=== PATIENT | female | born 1935 | race Caucasian/White ===

== ENCOUNTER 2021-09-22 09:57 | Outpatient (CLI) | payer MEDICARE, BC ==
[~2021-09-22 09:57] MED LIST: Iopamidol 300 61% 100 ML VIAL FS ONE
== END 2021-09-22 09:58 | disposition home or self-care (01) ==
LOC: CSHCT 09:57
PROVIDERS: ATTEND Internal Medicine Cardiovascular Disease
DX: I70.209 Unspecified atherosclerosis of native arteries of extremities, unspecified extremity (principal); I70.0 Atherosclerosis of aorta; I70.8 Atherosclerosis of other arteries; I70.203 Unspecified atherosclerosis of native arteries of extremities, bilateral legs; M79.89 Other specified soft tissue disorders; J90 Pleural effusion, not elsewhere classified; J98.11 Atelectasis; I51.7 Cardiomegaly; K76.0 Fatty (change of) liver, not elsewhere classified; K76.9 Liver disease, unspecified; D17.1 Benign lipomatous neoplasm of skin and subcutaneous tissue of trunk
CPT/HCPCS: 75635; 82565

== ENCOUNTER 2021-10-22 19:09 | Emergency (ER) | payer MEDICARE, BC ==
[2021-10-22 21:04] LABS: SARS-CoV-2 NAA Rapid Test Not Detected (NotDetected)
== END 2021-10-22 22:02 | disposition home or self-care (01) ==
LOC: CSHERS 19:09
DX: M79.10 Myalgia, unspecified site (principal); I48.91 Unspecified atrial fibrillation; I45.10 Unspecified right bundle-branch block; I11.0 Hypertensive heart disease with heart failure; I50.9 Heart failure, unspecified; E78.5 Hyperlipidemia, unspecified; E78.00 Pure hypercholesterolemia, unspecified; M19.90 Unspecified osteoarthritis, unspecified site; Z20.822 Contact with and (suspected) exposure to COVID-19; Z87.891 Personal history of nicotine dependence; E03.9 Hypothyroidism, unspecified
CPT/HCPCS: 0240U; 71045; 80053; 80061; 84443; 93005; 99284; 36415

== ENCOUNTER 2022-02-15 20:55 | Emergency (ER) | payer MEDICARE, BC ==
[2022-02-15 21:30] LABS: %Lymphocytes 24.1 % (18.0-47.0); %Monocytes 14.7 % (0.0-10.0); %Neutrophils 57.8 % (40.0-75.0); Hemoglobin 9.1 g/dL (12.0-15.5); Mean Corpuscular HGB CONC 32.6 g/dL (32.0-36.0); Mean Corpuscular Hemoglobin 33.8 pg (27.0-33.0); Mean Corpuscular Volume 103.7 fl (81.6-98.3); Mean Platelet Volume 11.5 fl (7.4-10.4); Platelet Count 147 10x3/uL (150-450); RBC Distribution Width 14.4 % (11.5-14.5); Red Blood Cell (RBC) Count 2.69 10x6/uL (3.90-5.03); White Blood Cell (WBC) Count 4.6 10x3/uL (3.5-10.5)
[2022-02-15 21:31] LABS: #Eosinphils 0.1 10x3/uL (0.0-0.5); #Monocytes 0.7 10x3/uL (0.0-1.1); #Neutrophils 2.7 10x3/uL (1.5-8.4); %Basophils 0.4 % (0.0-2.0); %Eosinophils 2.8 % (0.0-6.0)
[2022-02-15 21:35] LABS: ALT (SGPT) 26 U/L (8-55); AST (SGOT) 27 U/L (5-34); Albumin 3.6 g/dL (3.4-4.8); Alkaline Phosphatase 324 U/L (40-110); Anion Gap 11 mmol/L (10-20); BUN (Urea Nitrogen) 32 mg/dL (9.8-20.1); Bilirubin, Total 0.7 mg/dL (0.2-1.2); Calc. Creatinine Clearance 0 mL/min (70-130); Calcium 8.9 mg/dL (7.8-10.44); Carbon Dioxide 34 mmol/L (23-31); Chloride 99 mmol/L (98-107); Estimated GFR 41; Globulin 2.9 g/dL (2.4-3.5); Glucose 110 mg/dL (83-110); Potassium 4.4 mmol/L (3.5-5.1); Protein, Total 6.5 g/dL (5.8-8.1); Sodium 140 mmol/L (136-145)
[2022-02-15 23:29] LABS: Troponin I 0.016 ng/mL (< 0.028)
== END 2022-02-16 00:48 | disposition home or self-care (01) ==
LOC: CSHERS 20:55
DX: I48.20 Chronic atrial fibrillation, unspecified (principal); Z99.81 Dependence on supplemental oxygen; E78.00 Pure hypercholesterolemia, unspecified; I10 Essential (primary) hypertension; Z87.891 Personal history of nicotine dependence; Z79.899 Other long term (current) drug therapy
CPT/HCPCS: 71045; 80053; 83880; 84484; 85025; 93005

== ENCOUNTER 2022-02-17 16:25 | Emergency (ER) | payer MEDICARE, BC ==
[2022-02-17 17:32] LABS: #Eosinphils 0.1 10x3/uL (0.0-0.5); #Monocytes 0.7 10x3/uL (0.0-1.1); #Neutrophils 5.5 10x3/uL (1.5-8.4); %Basophils 0.3 % (0.0-2.0); %Eosinophils 1.1 % (0.0-6.0); %Neutrophils 78.3 % (40.0-75.0); Hemoglobin 9.6 g/dL (12.0-15.5); Mean Corpuscular HGB CONC 33.7 g/dL (32.0-36.0); Mean Corpuscular Hemoglobin 33.8 pg (27.0-33.0); Mean Corpuscular Volume 100.4 fl (81.6-98.3); Platelet Count 132 10x3/uL (150-450); RBC Distribution Width 14.2 % (11.5-14.5); Red Blood Cell (RBC) Count 2.84 10x6/uL (3.90-5.03)
[2022-02-17 17:45] LABS: ALT (SGPT) 35 U/L (8-55); AST (SGOT) 40 U/L (5-34); Albumin 3.8 g/dL (3.4-4.8); Alkaline Phosphatase 351 U/L (40-110); Anion Gap 13 mmol/L (10-20); BUN (Urea Nitrogen) 27 mg/dL (9.8-20.1); Bilirubin, Total 1.3 mg/dL (0.2-1.2); Calc. Creatinine Clearance 0 mL/min (70-130); Calcium 9.1 mg/dL (7.8-10.44); Carbon Dioxide 29 mmol/L (23-31); Chloride 97 mmol/L (98-107); Estimated GFR 49; Globulin 3.4 g/dL (2.4-3.5); Glucose 108 mg/dL (83-110); Potassium 3.9 mmol/L (3.5-5.1); Protein, Total 7.2 g/dL (5.8-8.1); Sodium 135 mmol/L (136-145)
== END 2022-02-17 19:37 | disposition home or self-care (01) ==
LOC: CSHERS 16:25
DX: I48.20 Chronic atrial fibrillation, unspecified (principal); J01.90 Acute sinusitis, unspecified; I11.0 Hypertensive heart disease with heart failure; I50.30 Unspecified diastolic (congestive) heart failure; Z87.891 Personal history of nicotine dependence; Z79.01 Long term (current) use of anticoagulants
CPT/HCPCS: 36415; 71045; 80053; 83880; 84443; 84484; 85025; 85610; 85730; 93005

== ENCOUNTER 2022-06-23 08:56 | Outpatient (CLI) | payer MEDICARE, BC ==
[2022-06-23] MEDS ORDERED: Iopamidol 300 61% 100 ML VIAL FS ONE (09:18)
== END 2022-06-23 08:57 | disposition home or self-care (01) ==
LOC: CSHCT 08:56
PROVIDERS: ATTEND Radiology Radiation Oncology
DX: C34.31 Malignant neoplasm of lower lobe, right bronchus or lung (principal); Z92.3 Personal history of irradiation; R91.8 Other nonspecific abnormal finding of lung field; J90 Pleural effusion, not elsewhere classified; J98.11 Atelectasis
CPT/HCPCS: 71260; 82565